=== PATIENT | female | born 1990 | race Caucasian/White ===

== ENCOUNTER 2016-09-27 07:49 | Inpatient (IN) | payer BC, OTHER ==
[~2016-09-27] VITALS: Ht 170.2 cm; Wt 49.9 kg
--- NOTE | 2016-09-27 13:58 | NUR ---
INTAKE ASSESSMENT Patient aox4 and stable. patient needed wheelchair for transportation due to being intoxicated at the moment. Vital signs stable. Patient reports allergies to vancomycin and shellfish. Patient reports seizure history last year. Explained unit protocols and policies, patient verbalized understanding. Will admit patient upon arrival to 3rd floor.
--- NOTE | 2016-09-27 14:00 | NUR ---
ADMISSION NOTE VITALS BP: 112/65 HR: 60 TEMP: 98.6 RR: 16 O2: 99% PAIN 0/10 WEIGHT 110 LBS HEIGHT 5'7 ALLERGIES: VANCOMYCIN, SHELLFISH Patient is a 25 year old female admitted to [facility] on 09/27/16 at 1318. Patient is under the care of Dr. Sky for meth, heroin, etoh dependence. Patient denies suicidal or homicidal ideations at this time. Patient denies being hospitalized in the last 30 days, but reports staying at a treatment center within this time. MRSA swab completed and sent to lab. Patient denies chest pain or SOB. Patient reports taking Gabapentin, Trazodone, and Inderal at home on a daily basis as rx medications. Upon assessment, patient has multiple bruises on bilateral arms from IV drug usage. CIWA 0 COWS 0 upon admission due to patient being mildly intoxicated and reports using drugs right before admission. Patient was able to answer questions necessary for admission process. Patient is full code and regular diet. Patient reports seizure history 1 month ago x1. breathing is even and unlabored. Patient reports Dr. Whelan is her PCP in [place]. Patient reports history of multiple treatment centers. Patient reports currently living with her friend. Hx of anxiety, depression, OCD, insomnia, and Hep C. Patient smokes approx. [address] Sky has been notified and assessed patient and placed her under observation. All needs have been met. Patient has been oriented to staff, room, and the unit. All safety measures in place per hospital policy. Bed in lowest position, locked, side rails up and padded x2, call tovar within reach. Sitter at bedside currently due to patient being intoxicated and been placed on 1:1 for observation and safety reasons. Will continue to monitor. substance abuse: METH 1/2-1 gram daily for 4 years, last used 09/27/16 1 gram HEROIN 1/2-1 gram daily for 7 years, last used 09/27/16 1 gram ETOH 75 oz beer daily for 8 years, last drank 09/27/16 75 ounces Addendum: 09/27/16 at 1907 by OLIVIER GREENE RN Patient admitted with multiple bruises to bilateral arms. Redness and edema to left hand. patient states all bruises and red burciaga are from using iv drugs
[2016-09-27] MEDS ORDERED: PROP10TA29 (14:18)
[2016-09-27] MEDS ORDERED: TRAZ-144 PO (14:19)
[2016-09-27] MEDS ORDERED: GABA-532 PO (14:19)
--- NOTE | 2016-09-27 14:19 | NUR ---
MRSA SWAB COLLECTED AND SENT TO LAB PATIENT REPORTS BEING IN [place] [facility]ENTER WITHIN THE LAST 30 DAYS WITH RECENT HX OF MRSA
--- NOTE | 2016-09-27 14:20 | NUR ---
1:1 sitter at bedside. patient unable to provide urine specimen and is mildly intoxicated
[2016-09-27] MEDS ORDERED: DICYCLOMINE HCL 20 MG TABLET PO PRN (14:30)
[2016-09-27] MEDS ORDERED: MAGNESIUM HYDROXIDE 30 ML LIQUID UDC PO PRN (14:30)
[2016-09-27] MEDS ORDERED: diphenhydrAMINE 50 MG CAPSULE PO PRN (14:30)
[2016-09-27] MEDS ORDERED: LORAZEPAM 1 MG TABLET PO PRN ×2 (14:30)
[2016-09-27] MEDS ORDERED: LORAZEPAM 2 MG/1 ML VIAL IM PRN (14:30)
[2016-09-27] MEDS ORDERED: MIRALAX 17 GM POWD.PACK PO PRN (14:30)
[2016-09-27] MEDS ORDERED: MAG HYDROX/AL HYDROX/SIMETH 30 ML LIQUID UDC PO PRN (14:30)
[2016-09-27] MEDS ORDERED: ONDANSETRON ODT 4 MG TAB.RAPDIS SL PRN (14:30)
[2016-09-27] MEDS ORDERED: LOPERAMIDE HCL 2 MG CAPSULE PO PRN ×2 (14:30)
[2016-09-27] MEDS ORDERED: PROPRANOLOL HCL 20 MG TABLET PO PRN (14:30)
[2016-09-27] MEDS ORDERED: ONDANSETRON 4 MG/2 ML VIAL IM PRN (14:30)
[2016-09-27] MEDS ORDERED: ACETAMINOPHEN 325 MG TABLET PO PRN (14:30)
[2016-09-27] MEDS ORDERED: BUPRENORPHINE HCL 2 MG TAB.SUBL SL PRN (14:30)
[2016-09-27 16:00] VITALS: BP 100/70
[2016-09-27 16:56] LABS: *URINE HCG, QUAL NEGATIVE (NEGATIVE)
[2016-09-27] MEDS ORDERED: THIAMINE HCL 200 MG/2 ML VIAL IM ONE (17:00)
[2016-09-27 17:13] LABS: *AMPHETAMINE, URINE POSITIVE (NEGATIVE); *BARBITURATE, URINE POSITIVE (NEGATIVE); *CANNABINOID, URINE NEGATIVE (NEGATIVE); *COCCAINE, URINE NEGATIVE (NEGATIVE); *OPIATE, URINE POSITIVE (NEGATIVE); *PHENCYCLIDINE SCREEN,URINE NEGATIVE (NEGATIVE)
[2016-09-27 18:36] LABS: BASOPHILS % (AUTO) 0.5 % (0.0-2.0); EOSINOPHILS # (AUTO) 0.3 K/uL (0.0-0.7); EOSINOPHILS % (AUTO) 3.4 % (0.0-7.0); HEMATOCRIT 40.1 % (37-47); HEMOGLOBIN 13.3 G/DL (12.0-16.0); LYMPHOCYTES # (AUTO) 2.1 K/UL (0.8-4.8); LYMPHOCYTES % (AUTO) 26.1 % (20.5-51.5); MEAN CORPUSCULAR HEMOGLOBIN 29.6 UUG (27.0-31.0); MEAN CORPUSCULAR HGB CONC 33 g/dL (32.0-37.0); MEAN CORPUSCULAR VOLUME 89.6 FL (81.0-99.0); MONOCYTES # (AUTO) 0.5 K/UL (0.1-1.30); MONOCYTES % (AUTO) 5.6 % (0.0-11.0); NEUTROPHILS # (AUTO) 5.1 K/UL (1.8-8.9); NEUTROPHILS % (AUTO) 64.4 % (38.5-71.5); PLATELET COUNT (AUTO) 198 K/UL (150-450); RED BLOOD CELL COUNT(AUTO) 4.48 MIL/UL (4.2-5.4)
--- NOTE | 2016-09-27 18:38 | NUR ---
END OF SHIFT NOTE Admitted patient this afternoon for etoh, heroin, meth dependence. Patient has not been started on a taper yet. She has been sleeping since admission with vital signs stable. Last COWS 2 CIWA 2. Patient taken off 1:1 as her gait is now steady and she is less intoxicated. No distress noted. All needs have been met. Safety measures in place. Will endorse to night nurse.
[2016-09-27 18:51] LABS: ALANINE AMINOTRANSFERASE 21 U/L (14-59); ALKALINE PHOSPHATASE 69 U/L (50-136); AMYLASE 22 U/L (25-115); ASPARTATE AMINOTRANSFERASE 26 U/L (15-37); BILIRUBIN,TOTAL 0.4 mg/dL (0.2-1.0); CARBON DIOXIDE 32 mmol/L (21-32); CHLORIDE 100 mmol/L (98-107); CREATININE 0.6 mg/dL (0.6-1.3); ETHANOL < 3 MG/DL (0-0); GLUCOSE 89 mg/dL (74-106); LIPASE 66 U/L (73-393); MAGNESIUM 1.9 mg/dL (1.8-2.4); POTASSIUM 3.4 mmol/L (3.5-5.1); TOTAL PROTEIN, SERUM 7.3 g/dL (6.4-8.2); UREA NITROGEN, BLOOD 6 mg/dL (7-18)
--- NOTE | 2016-09-27 19:50 | NUR ---
START OF SHIFT Received report from day shift nurse. Pt is lying in bed resting. She is a 25 yo female admitted to [facility] today for Heroin, ETOH, and Methamphetamine abuse. She is A&O x4 and ambulatory. Allergies to vancomycin and shellfish, full code status, and on a regular diet. She has a PMH of anxiety, depression, OCD, and insomnia. On admission she reported drinking beer 75 oz per day, heroin 0.5-1 gram per day and methamphetamine 0.5-1 gram per day. PRN's available for the management of withdrawal symptoms. Pt has bruises on bilateral arms and left hand redness and swelling due to IV drug use. PO abx ordered. She presents with body aches, hot and cold flashes, and left hand pain. Fall and seizure precautions in place. Bed is down with call light in reach.
[2016-09-27 20:00] VITALS: BP 112/69
[2016-09-27] MEDS ORDERED: TRAZODONE 50 MG TABLET PO PRN (21:00)
[2016-09-27] MEDS ORDERED: POTASSIUM CHLORIDE 20 MEQ TAB.PRT.SR PO ONE (21:00)
[2016-09-27] MEDS: SULFAMETH/TRIMETH 800/160 MG TABLET PO SCH (21:41)
[2016-09-27] MEDS: LACTOBACILLUS RHAMNOSUS GG 1 EACH CAPSULE PO SCH (21:42)
--- NOTE | 2016-09-27 21:42 | NUR ---
Potassium administered
[2016-09-27] MEDS: GABAPENTIN 300 MG CAPSULE PO SCH (21:45)
[2016-09-27] MEDS: IBUPROFEN 600 MG TABLET PO PRN (21:45)
--- NOTE | 2016-09-27 21:45 | NUR ---
PRN Motrin and Ativan Pt c/o mild headache, left hand pain r/t IV drug use, and feeling anxious. CIWA score 6. PRN Motrin and Ativan administered.
--- NOTE | 2016-09-27 22:45 | NUR ---
PRN Tylenol and Anbesol reassessment PRN Tylenol and Anbesol effective. Pt reports that tooth pain is relieved. Addendum: 09/28/16 at 0112 by STAN JUARES RN Disregard note. Incorrect patient.
--- NOTE | 2016-09-27 22:45 | NUR ---
PRN Motrin and Ativan reassessment PRN Motrin and Ativan effective. Pt reports that left hand pain is reduced, headache is relieved, and she feels more relaxed. CIWA 3.
[2016-09-28] VITALS: BP 106/60
--- NOTE | 2016-09-28 | NUR ---
0000 COWS and CIWA deferred COWS and CIWA ordered Q4HWA. Pt is lying in bed resting with eyes closed. Vital signs obtained. Safety measures in place.
[2016-09-28 04:00] VITALS: BP 111/72
--- NOTE | 2016-09-28 04:00 | NUR ---
0400 COWS and CIWA deferred COWS and CIWA ordered Q4HWA. Pt is lying in bed resting with eyes closed. Vital signs obtained. Safety measures in place.
--- NOTE | 2016-09-28 07:23 | NUR ---
END OF SHIFT Report provided to day shift nurse. Pt is lying in bed resting. She is a 25 yo female admitted to [facility] today for Heroin, ETOH, and Methamphetamine abuse. She is A&O x4 and ambulatory. Allergies to vancomycin and shellfish, full code status, and on a regular diet. She has a PMH of anxiety, depression, OCD, and insomnia. Upon admission she admitted to drinking beer 75 oz per day, heroin 0.5-1 gram per day and methamphetamine 0.5-1 gram per day. PRN's ordered for the management of withdrawal symptoms. Pt has bruises on bilateral arms and painful swelling of left hand r/t IV drug use. PO Bactrim ordered. PRN Ativan and Motrin administered. Last COWS 5 and CIWA 3. She drank 750mL and slept for 9 hours. Fall and seizure precautions in place. Bed is down with call light in reach.
--- NOTE | 2016-09-28 07:55 | NUR ---
START OF SHIFT: RECEIVED PT ASLEEP. RESPIRATIONS EVEN AND UNLABORED. BED LOCKED AND LOW. CALL LANDERS IN REACH. WILL CONTINUE TO MONITOR.
[2016-09-28 08:00] VITALS: BP 100/60
[2016-09-28] MEDS: GABAPENTIN 300 MG CAPSULE PO SCH ×3 (09:00→21:24)
[2016-09-28] MEDS: THIAMINE HCL 100 MG TABLET PO SCH (09:00)
[2016-09-28] MEDS: FOLIC ACID 1 MG TABLET PO SCH (09:00)
[2016-09-28] MEDS: MULTIVITAMINS,THERAPEUTIC TABLET PO SCH (09:00)
[2016-09-28] MEDS ORDERED: TUBERCULIN,PURIF.PROT.DERIV. 5 TU/0.1 ML TEST ID ONE ×2 (09:00→13:00)
--- NOTE | 2016-09-28 09:55 | NUR ---
COWS AND CIWA DEFERRED. SHE AGREED TO TAKE BACTRIM BUT SHE ASKED TO PLEASE HOLD THE REST OF HER MEDS UNTIL LATER.
[2016-09-28] MEDS: SULFAMETH/TRIMETH 800/160 MG TABLET PO SCH ×2 (10:16→21:24)
[2016-09-28] MEDS: LACTOBACILLUS RHAMNOSUS GG 1 EACH CAPSULE PO SCH ×2 (10:16→21:24)
[2016-09-28] MEDS ORDERED: LORAZEPAM 1 MG TABLET PO PRN (10:45)
[2016-09-28] MEDS ORDERED: BUPRENORPHINE HCL 2 MG TAB.SUBL SL PRN (10:45)
[2016-09-28 12:00] VITALS: BP 105/60
--- NOTE | 2016-09-28 13:00 | NUR ---
ISAAK 16 GAVE ATIVAN 2 MG PO PRN . PPD PLANTED TO LFA. WILL MONITOR EFFECTIVENESS OF PRN MED.
--- NOTE | 2016-09-28 13:31 | NUR ---
Therapist prompted client to attend daily group sessions, and therapist informed client of the group schedule. Client stated that she would make an effort to attend if she was feeling well enough too.
--- NOTE | 2016-09-28 14:00 | NUR ---
PT STATES SHE FEELS MUCH BETTER. IRAIS DAY EFFECTIVE. Addendum: 09/28/16 at 1457 by CLAUDINE LAM RN ISAAK Holland
[2016-09-28 16:00] VITALS: BP 104/64
[2016-09-28] MEDS: METHOCARBAMOL 750 MG TABLET PO PRN (18:20)
[2016-09-28] MEDS: LORAZEPAM 1 MG TABLET PO PRN ×2 (18:20→21:32)
[2016-09-28] MEDS: IBUPROFEN 600 MG TABLET PO PRN (18:20)
--- NOTE | 2016-09-28 18:25 | NUR ---
PT C/O ANXIETY,RESTLESSNESS MUSCLE ACHES AND IRRITABILITY. CIWA 8 SHE IS ASKING FOR ATIVAN AND SOMETHING FOR HER L HAND PAIN. MOTRIN,ROBAXIN AND ATIVAN GIVEN. WILL MONITOR EFFECTIVENESS.
--- NOTE | 2016-09-28 18:38 | NUR ---
END OF SHIFT: PT STAYED IN BED SLEEPING ON AND OFF. SHE WAS GIVEN ATIVAN PRN X 2. LAST CIWA 8. SHE PRESENTS WITH IRRITABLE MOOD AND CONGRUENT AFFECT. SHE STATES SHE DID NOT WANT ANY SUBUTEX TODAY AND DOESN'T LIKE IT. MOTRIN GIVEN FOR L HAND PAIN AND ROBAXIN GIVEN FOR MUSCLE ACHES. PPD PLANTED TO RFA. SHE WAS COMPLIANT WITH INCREASED FLUIDS. ABT THERAPY WITH BACTRIM FOR L HAND SWELLING AND REDNESS. WILL PASS SHIT REPORT TO ONCOMING NIGHT NURSE.
--- NOTE | 2016-09-28 19:05 | NUR ---
Start of Shift Patient Received. Patient is noted in her bed sleeping. Breathing even and non labored. No signs of pain or discomfort noted. Patient is a 25 year old female, admitted on 09/27/16 for ETOH and Opiate Dependence under the care of Dr. Sky. Patient verbalizes allergies to Shellfish and Vancomycin, wishes to be full code, following a regular diet, placed on fall and seizure precautions. Skin noted with bruises to bilateral upper extremities and left hand redness and swelling. Patient continues on Bactrim DS Q12H. Per endorsement, patient has been refusing PRN Subutex due to patient reporting it makes her stay awake. Patient has been noted to be withdrawn to room and sleeping throughout the shift. Patient was give PRN Motrin, Robaxin, and Ativan for CIWA of 8. All needs attended to promptly. Will continue plan of care as ordered.
[2016-09-28 20:15] VITALS: BP 102/63
--- NOTE | 2016-09-28 21:32 | NUR ---
PRN Medication Administration Patient verbalizing increased anxiety, noted to be tremulous, verbalizing increased agitation, and restlessness. CIWA noted to be 7. PRN Ativan 1mg administered as per order. Will continue to monitor.
--- NOTE | 2016-09-28 22:30 | NUR ---
PRN Medication Reassessment Patient noted in bed watching tv. Patient is able to verbalize "I feel like the medication helped take the edge off." PRN Ativan noted to be effective. CIWA noted to be 3. All needs attended to promptly. Will continue to monitor.
[2016-09-29 00:30] VITALS: BP 98/62
[2016-09-29 04:06] VITALS: BP 99/58
--- NOTE | 2016-09-29 07:13 | NUR ---
End of Shift Patient is in bed sleeping. Breathing even and non labored. No signs of pain or discomfort noted. Patient is a 25 year old female, admitted on 09/27/16 for ETOH and Opiate Dependence under the care of Dr. Sky. Patient verbalizes allergies to Shellfish and Vancomycin, wishes to be full code, following a regular diet, placed on fall and seizure precautions. Skin noted with bruises to bilateral upper extremities and left hand redness and swelling. Patient continues on Bactrim DS Q12H. Patient was given PRN Ativan 1mg for a CIWA of 7 with medication noted to be effective with a CIWA of 3. All needs attended to promptly. Will continue plan of care as ordered.
[2016-09-29 08:00] VITALS: BP 104/60
--- NOTE | 2016-09-29 08:10 | NUR ---
START OF SHIFT: RECEIVED PT A/O X 4. SHE PRESENTS WITH BLUNTED AFFECT AND DEPRESSED MOOD. SHE DENIES S/I AND H/I. SHE STATES SHE SLEPT WELL. ENCOURAGED HER TO EAT FREQUENT SMALL MEALS TO PROMOTE GOOD NUTRITION. ENCOURAGED INCREASED FLUIDS. GAVE PT TOWELS AND WASH CLOTH SO SHE CAN SHOWER THIS AM. COWS 2 CIWA 2. PRNS AVAILABLE. SHE REPORTS SOME DEPRESSION AND MILD BODY ACHES. SHE VERBALIZED THE AMOUNT OF TIMES SHE OVERDOSED AND HOW THIS ADDICTION IS HURTING HER. ENCOURAGED GROUP ATTENDANCE TO PREVENT RELAPSE AND IMPROVE COPING SKILLS.OFFERED SUPPORT. WILL CONTINUE TO MONITOR.
[2016-09-29] MEDS: FOLIC ACID 1 MG TABLET PO SCH (08:48)
[2016-09-29] MEDS: SULFAMETH/TRIMETH 800/160 MG TABLET PO SCH ×2 (08:48→20:21)
[2016-09-29] MEDS: THIAMINE HCL 100 MG TABLET PO SCH (08:48)
[2016-09-29] MEDS: GABAPENTIN 300 MG CAPSULE PO SCH ×3 (08:48→20:20)
[2016-09-29] MEDS: MULTIVITAMINS,THERAPEUTIC TABLET PO SCH (08:49)
[2016-09-29] MEDS: LACTOBACILLUS RHAMNOSUS GG 1 EACH CAPSULE PO SCH ×2 (08:49→20:20)
[2016-09-29 12:00] VITALS: BP 95/54
[2016-09-29] MEDS: IBUPROFEN 600 MG TABLET PO PRN (13:39)
[2016-09-29] MEDS: HYDROXYZINE PAMOATE 25 MG CAPSULE PO PRN ×2 (13:39→20:20)
--- NOTE | 2016-09-29 13:45 | NUR ---
PRN MOTRIN GIVEN FOR REPORTED TEETH PAIN 6/10 AND VISTARIL PRN GIVEN FOR ANXIETY. WILL MONITOR EFFECTIVENESS.
[2016-09-29] MEDS ORDERED: IBUP-1955 PO (14:09)
[2016-09-29] MEDS ORDERED: GABA-534 PO (14:09)
[2016-09-29] MEDS ORDERED: DICY20TA28 PO (14:09)
[2016-09-29] MEDS ORDERED: HYDR-3895 PO (14:09)
[2016-09-29] MEDS ORDERED: METH-406 PO (14:09)
[2016-09-29] MEDS ORDERED: LACT1CAP57 PO (14:09)
[2016-09-29] MEDS ORDERED: TRAZ-144 PO (14:09)
[2016-09-29] MEDS ORDERED: SULF1TAB3 PO (14:09)
--- NOTE | 2016-09-29 14:45 | NUR ---
PT STATES VISTARIL AND MOTRIN WERE EFFECTIVE. PAIN 05/03.DISCHARGE PLANNING IN PROGRESS FOR TOMORROW.
[2016-09-29 16:00] VITALS: BP 90/60
--- NOTE | 2016-09-29 18:52 | NUR ---
END OF SHIFT: PT STAYED IN ROOM MOST OF SHIFT AND HAD LITTLE INTERACTION WITH PEERS AND NO GROUP ATTENDANCE. SHE WAS GIVEN PRN MOTRIN FOR TEETH PAIN AND VISTARIL FOR ANXIETY AND WAS EFFECTIVE.LAST CIWA 3.COWS 4. SHE PRESENTS WITH IRRITABLE MOOD AND CONGRUENT AFFECT. SHE WAS COMPLIANT WITH INCREASED FLUIDS. ABT THERAPY WITH BACTRIM FOR L HAND SWELLING AND REDNESS. DISCHARGE PLANNING IN PROGRESS FOR 09/30. UDS NOT RECEIVED AND PT BECAME AGITATED WHEN TOLD SHE WAS GOING ON ROOM RESTRICTION. PT EXPRESSED SHE IS HAVING CRAVINGS. OFFERED SUPPORT. [facility]
--- NOTE | 2016-09-29 19:15 | NUR ---
START OF SHIFT: RECEIVED PT A/O X 4. SHE PRESENTS WITH BLUNTED AFFECT AND DEPRESSED MOOD. SHE DENIES S/I AND H/I. SHE STATES SHE SLEPT WELL. ENCOURAGED HER TO EAT FREQUENT SMALL MEALS TO PROMOTE GOOD NUTRITION. ENCOURAGED INCREASED FLUIDS. PRNS AVAILABLE. SHE REPORTS SOME DEPRESSION AND MILD BODY ACHES. SHE VERBALIZED HOW THIS ADDICTION IS HURTING HER. ENCOURAGED GROUP ATTENDANCE TO PREVENT RELAPSE AND IMPROVE COPING SKILLS. Pt. will be D/C tomorrow. Safety measures in place : bed on lowest position with side rails x2 up for safety, call light within reach. Will continue to monitor closely and offer help.
[2016-09-29 20:00] VITALS: BP 117/70
[2016-09-29 20:09] LABS: *AMPHETAMINE, URINE POSITIVE (NEGATIVE); *BARBITURATE, URINE POSITIVE (NEGATIVE); *CANNABINOID, URINE NEGATIVE (NEGATIVE); *COCCAINE, URINE NEGATIVE (NEGATIVE); *OPIATE, URINE POSITIVE (NEGATIVE); *PHENCYCLIDINE SCREEN,URINE NEGATIVE (NEGATIVE)
[2016-09-29] MEDS: METHOCARBAMOL 750 MG TABLET PO PRN (20:21)
--- NOTE | 2016-09-29 21:00 | NUR ---
PRN TRAZODONE, ROBAXIN, VISTARIL, BENADRYL Pt. complains of sleeplessness, muscle spasm, increased level of anxiety. PRN TRAZODONE, ROBAXIN, VISTARIL, BENADRYL given as ordered. Safety measures in place : bed on lowest position with side rails x2 up for safety, call light within reach. Will continue to monitor closely and offer help.
[2016-09-29] MEDS ORDERED: diphenhydrAMINE 50 MG CAPSULE PO ONE (22:00)
--- NOTE | 2016-09-29 22:00 | NUR ---
REASSESSMENT TRAZODONE, ROBAXIN, VISTARIL, BENADRYL Pt. is sleeping, RR=16, unlabored and even. . Safety measures in place : bed on lowest position with side rails x2 up for safety, call light within reach. Will continue to monitor closely and offer help.
[2016-09-29] MEDS ORDERED: diphenhydrAMINE 50 MG CAPSULE ONE (22:16)
--- NOTE | 2016-09-30 06:34 | NUR ---
END OF SHIFT: RECEIVED PT A/O X 4. SHE PRESENTS WITH BLUNTED AFFECT AND DEPRESSED MOOD. SHE DENIES S/I AND H/I. SHE STATES SHE SLEPT WELL. ENCOURAGED HER TO EAT FREQUENT SMALL MEALS TO PROMOTE GOOD NUTRITION. ENCOURAGED INCREASED FLUIDS. PRNS AVAILABLE. SHE REPORTS SOME DEPRESSION AND MILD BODY ACHES. SHE VERBALIZED HOW THIS ADDICTION IS HURTING HER. ENCOURAGED GROUP ATTENDANCE TO PREVENT RELAPSE AND IMPROVE COPING SKILLS. Pt. will be D/C in A.M after meeting with . Pt remains compliant with the treatment plan. PRN TRAZODONE, ROBAXIN, VISTARIL, BENADRYL given during my shift. V/S remain WNL. RR=16, even and unlabored, lungs clear upon auscultation, abdomen soft and non- distended. Pt denies nausea, vomiting and diarrhea. LAST CIWA= 2 ,COWS= 2 at 0400 , CLBSSP=6321 ml, voided x 1, slept 8 hours. Safety measures in place : bed on lowest position with side rails x2 up for safety, call light within reach. Will continue to monitor closely and offer help.
--- NOTE | 2016-09-30 07:53 | NUR ---
START OF SHIFT NOTE Received patient in bed Aox4. patient states she feels "fine." She is scheduled for discharge this shift. PRN Trazodone, Benadryl, Robaxin, and Vistaril given per night nurse. She slept 8 hours. Night nurse reports last COWS 2 CIWA 2. Vital signs stable this morning. Will provide safe and supportive environment. Will continue to monitor.
[2016-09-30 08:00] VITALS: BP 91/63
[2016-09-30] MEDS: SULFAMETH/TRIMETH 800/160 MG TABLET PO SCH (08:14)
[2016-09-30] MEDS: GABAPENTIN 300 MG CAPSULE PO SCH (08:14)
[2016-09-30] MEDS: THIAMINE HCL 100 MG TABLET PO SCH (08:15)
[2016-09-30] MEDS: MULTIVITAMINS,THERAPEUTIC TABLET PO SCH (08:15)
[2016-09-30] MEDS: LACTOBACILLUS RHAMNOSUS GG 1 EACH CAPSULE PO SCH (08:15)
[2016-09-30] MEDS: FOLIC ACID 1 MG TABLET PO SCH (08:15)
[2016-09-30 12:08] LABS: HEPATITIS B SURFACE AG Negative (Negative)
--- NOTE | 2016-09-30 12:17 | NUR ---
DISCHARGE NOTE PATIENT IS IN STABLE CONDITION WITH VITAL SIGNS WNL. PATIENT IS AOX4. SKIN INTACT WITH BILAT BRUISES THAT WERE PRESENT UPON ADISSION. PATIENT DENIES S/I OR H/I. ALL DISCHARGE PAPERWORK COMPLETED, DATED AND SIGNED. PATIENT EDUCATED ON DISCHARGE INSTRUCTIONS AND WHEN TO CALL MD AND PATIENT VERBALIZED UNDERSTANDING. PATIENTS LAST COWS 2 CIWA 2. PATIENT WAS DISCHARGED FROM [facility] ON 09/30/16 AT 1200. PATIENT LEFT BUILDING WITH ALL BELONGINGS AND RX. PATIENT TRANSPORTED TO [facility] BY WOOD MILLING MACHINE OPERATOR AND PICKED UP BY [facility]. MD HAS BEEN NOTIFIED OF PATIENTS DC.
== END 2016-09-30 12:00 | disposition other institution (70) | DRG 895 ==
LOC: SRC 12:24
PROVIDERS: ADMIT Internal Medicine; ATTEND Internal Medicine
PROC: HZ2ZZZZ Detoxification Services for Substance Abuse Treatment (ICD-10-PCS; principal; 2016-09-27)
PROC: HZ31ZZZ Individual Counseling for Substance Abuse Treatment, Behavioral (ICD-10-PCS; 2016-09-28)
DX: F11.23 Opioid dependence with withdrawal (principal); L03.114 Cellulitis of left upper limb; F10.230 Alcohol dependence with withdrawal, uncomplicated; Y90.9 Presence of alcohol in blood, level not specified; B19.20 Unspecified viral hepatitis C without hepatic coma; Z81.8 Family history of other mental and behavioral disorders; Z81.1 Family history of alcohol abuse and dependence; Z82.49 Family history of ischemic heart disease and other diseases of the circulatory system; Z86.14 Personal history of Methicillin resistant Staphylococcus aureus infection; F17.210 Nicotine dependence, cigarettes, uncomplicated; E87.6 Hypokalemia; F15.23 Other stimulant dependence with withdrawal; G47.00 Insomnia, unspecified; F41.9 Anxiety disorder, unspecified; Z59.0 Homelessness; F32.9 Major depressive disorder, single episode, unspecified; S61.432S Puncture wound without foreign body of left hand, sequela; X78.8XXS Intentional self-harm by other sharp object, sequela
CPT/HCPCS: 36415; 70030-TC; 80307; 80324; 80345; 80361; 83690; 83735; 84443; 84703; 85025; 86580; 86592; 86705; 86803; 87340; 87806; G0480; J3411; Q0163

== ENCOUNTER 2016-11-01 21:57 | Inpatient (IN) | payer BC, OTHER ==
[~2016-11-01] VITALS: Ht 170.2 cm; Wt 45.4 kg
[~2016-11-01 21:57] MED LIST: DICY20TA28 PO; GABA-534 PO; HYDR-3895 PO; IBUP-1955 PO; LACT1CAP57 PO; METH-406 PO; PROP10TA29; SULF1TAB3 PO; TRAZ-144 PO
[2016-11-01] MEDS ORDERED: LOPERAMIDE HCL 2 MG CAPSULE PO PRN ×2 (23:45)
[2016-11-01] MEDS ORDERED: CLONIDINE HCL 0.1 MG TABLET PO PRN (23:45)
[2016-11-01] MEDS ORDERED: LORAZEPAM 2 MG/1 ML VIAL IM PRN (23:45)
[2016-11-01] MEDS ORDERED: ONDANSETRON 4 MG/2 ML VIAL IM PRN (23:45)
[2016-11-01] MEDS ORDERED: MAG HYDROX/AL HYDROX/SIMETH 30 ML LIQUID UDC PO PRN (23:45)
[2016-11-01] MEDS ORDERED: MIRALAX 17 GM POWD.PACK PO PRN (23:45)
[2016-11-01] MEDS ORDERED: METHOCARBAMOL 750 MG TABLET PO PRN (23:45)
[2016-11-01] MEDS ORDERED: DICYCLOMINE HCL 20 MG TABLET PO PRN (23:45)
[2016-11-01] MEDS ORDERED: diphenhydrAMINE 50 MG CAPSULE PO PRN (23:45)
[2016-11-01] MEDS ORDERED: LORAZEPAM 1 MG TABLET PO PRN (23:45)
[2016-11-01] MEDS ORDERED: BUPRENORPHINE HCL 2 MG TAB.SUBL SL PRN (23:45)
[2016-11-01] MEDS ORDERED: ACETAMINOPHEN 325 MG TABLET PO PRN (23:45)
[2016-11-02] MEDS ORDERED: PROPRANOLOL HCL 20 MG TABLET PO PRN
--- NOTE | 2016-11-02 00:15 | NUR ---
INTAKE ASSESSMENT BP:110/56, HR:86, RR:16, Spo2: 97%, T:98 Pt reports headache 08/31. Pt is in stable condition and able to be admitted on the unit. Unit protocols regarding medications and vital signs every four hours were explained. Pt verbalized understanding. Will continue admission upon arrival on the unit.
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
[2016-11-02] MEDS ORDERED: TRAZODONE 50 MG TABLET PO ONE (01:45)
[2016-11-02] MEDS ORDERED: TRAZODONE 50 MG TABLET PO SCH (01:45)
[2016-11-02 01:48] LABS: *URINE HCG, QUAL NEGATIVE (NEGATIVE)
[2016-11-02] MEDS: LORAZEPAM 1 MG TABLET PO PRN ×2 (01:48→09:19)
[2016-11-02] MEDS: IBUPROFEN 600 MG TABLET PO PRN (01:48)
[2016-11-02] MEDS: ONDANSETRON ODT 4 MG TAB.RAPDIS SL PRN (01:48)
--- NOTE | 2016-11-02 01:48 | NUR ---
ONE TIME TRAZODONE, PRN ATIVAN, MOTRIN, ZOFRAN Pt complains of pins/needles, anxiety, nausea, restlessness, headache and inability to sleep. One time Trazodone, PRN Ativan, Motrin and Zofran administered as ordered. Breathing even and unlabored, safety measures in place. Will monitor effectiveness.
[2016-11-02] MEDS ORDERED: LORAZEPAM 1 MG TABLET ONE (01:50)
[2016-11-02] MEDS ORDERED: IBUPROFEN 600 MG TABLET ONE (01:51)
[2016-11-02] MEDS ORDERED: ONDANSETRON ODT 4 MG TAB.RAPDIS ONE (01:51)
[2016-11-02 01:53] LABS: *AMPHETAMINE, URINE POSITIVE (NEGATIVE); *BARBITURATE, URINE POSITIVE (NEGATIVE); *CANNABINOID, URINE NEGATIVE (NEGATIVE); *COCCAINE, URINE NEGATIVE (NEGATIVE); *OPIATE, URINE POSITIVE (NEGATIVE); *PHENCYCLIDINE SCREEN,URINE NEGATIVE (NEGATIVE)
--- NOTE | 2016-11-02 02:48 | NUR ---
PRN REASSESSMENT PRN medications effective. Pt is lying in bed with eyes closed noted to be asleep. No facial grimacing noted. Respirations 16, breathing is even and unlabored, safety measures in place. Will monitor
[2016-11-02 04:00] VITALS: BP 91/54
--- NOTE | 2016-11-02 04:00 | NUR ---
COWS/CIWA DEFERRED COWS and CIWA deferred d/t pt lying in bed with eyes closed noted to be asleep. Respirations 16, breathing is even and unlabored. Safety measures in place. Will monitor.
[2016-11-02 06:43] LABS: BASOPHILS % (AUTO) 0.3 % (0.0-2.0); EOSINOPHILS # (AUTO) 0.5 K/uL (0.0-0.7); EOSINOPHILS % (AUTO) 5.4 % (0.0-7.0); HEMATOCRIT 35.9 % (37-47); HEMOGLOBIN 12.1 G/DL (12.0-16.0); LYMPHOCYTES # (AUTO) 2.5 K/UL (0.8-4.8); LYMPHOCYTES % (AUTO) 29.7 % (20.5-51.5); MEAN CORPUSCULAR HEMOGLOBIN 29.8 UUG (27.0-31.0); MEAN CORPUSCULAR HGB CONC 34 g/dL (32.0-37.0); MEAN CORPUSCULAR VOLUME 88.5 FL (81.0-99.0); MONOCYTES # (AUTO) 0.9 K/UL (0.1-1.30); MONOCYTES % (AUTO) 10.5 % (0.0-11.0); NEUTROPHILS # (AUTO) 4.5 K/UL (1.8-8.9); NEUTROPHILS % (AUTO) 54.1 % (38.5-71.5); PLATELET COUNT (AUTO) 186 K/UL (150-450); RED BLOOD CELL COUNT(AUTO) 4.05 MIL/UL (4.2-5.4); WHITE BLOOD COUNT (AUTO) 8.4 K/UL (4.0-11.2)
[2016-11-02 06:49] LABS: ALANINE AMINOTRANSFERASE 17 U/L (14-59); ALKALINE PHOSPHATASE 60 U/L (50-136); AMYLASE 32 U/L (25-115); ASPARTATE AMINOTRANSFERASE 16 U/L (15-37); BILIRUBIN,TOTAL 0.4 mg/dL (0.2-1.0); CARBON DIOXIDE 30 mmol/L (21-32); CHLORIDE 103 mmol/L (98-107); CREATININE 0.6 mg/dL (0.6-1.3); GLUCOSE 123 mg/dL (74-106); MAGNESIUM 1.8 mg/dL (1.8-2.4); POTASSIUM 2.9 mmol/L (3.5-5.1); TOTAL PROTEIN, SERUM 6.5 g/dL (6.4-8.2); UREA NITROGEN, BLOOD 11 mg/dL (7-18)
[2016-11-02 06:53] LABS: ETHANOL < 3 MG/DL (0-0)
--- NOTE | 2016-11-02 06:59 | NUR ---
END OF SHIFT Pt is a 26 year old female admitted on 11/02/16 for EOTH, heroin, and methamphetamine dependency. Pt is full code with allergy to shellfish and Vancomycin. She reports a PMHx of seizure in Dec 2015, Chlamydia (2013),depression , MRSA 2012 and OCD. She received PRN Ativan, Trazodone, Motrin, and Zofran. She slept a total of 2 hrs, Intake: 1445mL, Void: x1, BM:0, COWS:5, CIWA:7. Pt remains alert and oriented x4, breathing is even and unlabored, safety measures in place. Endorsed to oncoming shift.
--- NOTE | 2016-11-02 07:48 | NUR ---
START OF SHIFT NOTE Received patient this Am Aox4.Patient presents with flat affect and fatigued. She states she feels "Crappy." RR even and unlabored. Call light within reach.No taper ordered yet. PRN Trazodone, Ativan, motrin, Zofran given per night nurse. She slept 2 hours. Last CIWA 7 COWS 5 per night nurse. Encouraged patient to rest during shift. Encouraged patient to increase fluid intake to facilitate detox. Encouraged pt to notify RN if S/S of W/D worsen. Will monitor closely and offer help.
[2016-11-02 08:00] VITALS: BP 84/62
[2016-11-02] MEDS ORDERED: TUBERCULIN,PURIF.PROT.DERIV. 5 TU/0.1 ML TEST ID ONE (09:00)
[2016-11-02] MEDS: FOLIC ACID 1 MG TABLET PO SCH (09:19)
[2016-11-02] MEDS: MULTIVITAMINS,THERAPEUTIC TABLET PO SCH (09:19)
--- NOTE | 2016-11-02 09:23 | NUR ---
PRN MEDICATION 1 MG ATIVAN GIVEN FOR W/D SYMPTOMS. PT STATES ANXIETY & TREMORS. CIWA 9. WILL REASSESS
--- NOTE | 2016-11-02 09:25 | NUR ---
MRSA SWAB COMPLETED AND SENT TO LAB. PATIENT REPORTS BEING HOMELESS AND BEING IN A TREATMENT CENTER WITHIN THE LAST 30 DAYS.
[2016-11-02] MEDS: POTASSIUM CHLORIDE 20 MEQ TAB.PRT.SR PO ONE ×2 (09:49→09:52)
--- NOTE | 2016-11-02 10:20 | NUR ---
PRN REASSESSMENT PATIENT SLEEPING IN BED WITH RR EVEN AND UNLABORED. CALL LANDERS WITHIN REACH. BED IN LOWEST POSITION. CIWA DEFERRED D/T ORDER BEING WHILE AWAKE. WILL MONITOR CLOSELY.
[2016-11-02] MEDS ORDERED: TRAZODONE 50 MG TABLET PO PRN (11:45)
[2016-11-02 12:00] VITALS: BP 91/62
[2016-11-02] MEDS: LORAZEPAM 1 MG TABLET PO SCH ×3 (12:07→21:35)
[2016-11-02] MEDS ORDERED: THIAMINE HCL 200 MG/2 ML VIAL IM ONE (12:30)
[2016-11-02] MEDS ORDERED: POTASSIUM CHLORIDE 20 MEQ POWDER PACKET PO ONE ×2 (13:00→21:00)
[2016-11-02] MEDS ORDERED: POTASSIUM CHLORIDE 20 MEQ TAB.PRT.SR PO ONE (15:00)
[2016-11-02] MEDS ORDERED: GABAPENTIN 300 MG CAPSULE PO SCH (15:00)
[2016-11-02 16:00] VITALS: BP 87/56
--- NOTE | 2016-11-02 18:26 | NUR ---
END OF SHIFT NOTE Patient started on Ativan taper and tolerating well. PRN Ativan given at 0920 d/t s/s of w/d. patient had uneventful shift. Patient slept entire shift, but would arise for medication pass, assessments, and RN communication. She appeared fatigued and drowsy r/t w/d process.. RR even and unlabored. No distress noted. Vital signs stable.MRSA swab collected and sent to lab. Potassium levels low and was supplemented with PO Potassium during shift, Last COWS 8 CIWA 6. All needs met. All safety measures in place. Will endorse to night nurse.
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
[2016-11-02 20:00] VITALS: BP 102/55
[2016-11-02] MEDS ORDERED: BUPRENORPHINE HCL 2 MG TAB.SUBL SL PRN (20:00)
[2016-11-02] MEDS: GABAPENTIN 300 MG CAPSULE PO SCH (21:36)
[2016-11-02] MEDS ORDERED: GABAPENTIN 300 MG CAPSULE ONE (21:37)
[2016-11-03 04:00] VITALS: BP 103/58
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
[2016-11-03 07:09] LABS: CREATININE 0.7 mg/dL (0.6-1.3); MAGNESIUM 1.7 mg/dL (1.8-2.4)
--- NOTE | 2016-11-03 07:30 | NUR ---
START OF SHIFT Pt is a 26 yr old female, AA&Ox3. Pt was admitted on 11/01/16 for ETOH/Opiate Dependence and is on 4 day Subutex and 4 day Ativan taper as ordered. No PRN's were given during the night. Pt slept for 11 hrs. Last COWS score was 3, CIWA score was 4. Pt is currently c/o cold and hot chills, body ache 4/10, nausea and abdominal cramping. Zofran was offered but pt refused. Skin is intact, warm and dry to touch. No tremors seen or felt. Encouraged increase fluid intake. Safety precautions observed. Call light is within reach. Will continue to monitor.
[2016-11-03 08:00] VITALS: BP 103/56
[2016-11-03] MEDS: THIAMINE HCL 100 MG TABLET PO SCH (09:13)
[2016-11-03] MEDS: FOLIC ACID 1 MG TABLET PO SCH (09:14)
[2016-11-03] MEDS: GABAPENTIN 300 MG CAPSULE PO SCH ×3 (09:14→21:35)
[2016-11-03] MEDS: LORAZEPAM 1 MG TABLET PO SCH ×4 (09:14→21:34)
[2016-11-03] MEDS: MULTIVITAMINS,THERAPEUTIC TABLET PO SCH (09:14)
[2016-11-03] MEDS: BUPRENORPHINE HCL 2 MG TAB.SUBL SL SCH ×3 (09:14→21:35)
[2016-11-03 10:07] LABS: HEPATITIS B SURFACE AG Negative (Negative)
[2016-11-03] MEDS: FLUOXETINE HCL 20 MG CAPSULE PO SCH (10:39)
[2016-11-03] MEDS ORDERED: MAGNESIUM OXIDE 400 MG TABLET PO ONE (11:00)
[2016-11-03 12:30] VITALS: BP 103/66
[2016-11-03] MEDS: DICYCLOMINE HCL 20 MG TABLET PO SCH ×2 (14:57→21:34)
[2016-11-03] MEDS: BACLOFEN 10 MG TABLET PO SCH ×2 (14:57→21:35)
[2016-11-03 16:00] VITALS: BP 106/52
--- NOTE | 2016-11-03 19:07 | NUR ---
END OF SHIFT Pt is a 26 yr old female, A&Ox3. Pt was admitted on 11/01/16 for ETOH/Opiate Dependence and is on 4 day Subutex and 4 day Ativan taper as ordered. Pt has been cooperative with medication regimen. Pt refused to attend group sessions. No PRNs were given. Pt has been c/o anxiety and cold chills. Skin is intact, warm and dry to touch. No tremors seen or felt. Pt denies any n/v. Last COWS score was 5, CIWA score was 3. Encouraged increase fluid intake. Safety precautions observed. Call light is within reach.
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
[2016-11-03 21:00] VITALS: BP 113/70
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
--- NOTE | 2016-11-04 07:30 | NUR ---
START OF SHIFT Pt is a 26 yr old female, AA&Ox3. Pt was admitted on 11/01/16 for ETOH/Opiate Dependence and is on 4 day Subutex and 4 day Ativan taper as ordered. No PRN's were given during the night. Pt slept for 8 hrs. Last COWS score was 3, CIWA score was 3. Pt is currently in bed resting with respirations even and unlabored. Pt states of having anxiety and cold chills. Skin is warm and dry to touch. No tremors seen or felt. Encouraged increase fluid intake. Safety precautions observed. Call light is within reach. Will continue to monitor.
[2016-11-04 08:00] VITALS: BP 102/51
[2016-11-04] MEDS ORDERED: BUPRENORPHINE HCL 2 MG TAB.SUBL SL SCH (09:00)
[2016-11-04] MEDS: FLUOXETINE HCL 20 MG CAPSULE PO SCH (09:54)
[2016-11-04] MEDS: GABAPENTIN 300 MG CAPSULE PO SCH ×3 (09:54→21:33)
[2016-11-04] MEDS: DICYCLOMINE HCL 20 MG TABLET PO SCH ×3 (09:54→21:34)
[2016-11-04] MEDS: THIAMINE HCL 100 MG TABLET PO SCH (09:55)
[2016-11-04] MEDS: FOLIC ACID 1 MG TABLET PO SCH (09:55)
[2016-11-04] MEDS: LORAZEPAM 1 MG TABLET PO SCH ×3 (09:55→21:33)
[2016-11-04] MEDS: MULTIVITAMINS,THERAPEUTIC TABLET PO SCH (09:55)
[2016-11-04] MEDS: BACLOFEN 10 MG TABLET PO SCH (09:55)
[2016-11-04] MEDS ORDERED: KETOROLAC TROMETHAMINE 30 MG INJ IM PRN (11:30)
[2016-11-04] MEDS: SULFAMETH/TRIMETH 800/160 MG TABLET PO SCH ×2 (11:40→21:33)
--- NOTE | 2016-11-04 11:40 | NUR ---
NSG NOTES Pt was seen and examined by Dr. Sky with new order to start on Bactrim DS for right forearm abscess. Medication was given to pt and korey well. Encouraged increase fluid intake. Will continue to monitor.
[2016-11-04 12:00] VITALS: BP 100/57
[2016-11-04] MEDS ORDERED: LORAZEPAM 1 MG TABLET PO ONE (12:00)
[2016-11-04] MEDS ORDERED: BUPRENORPHINE HCL 2 MG TAB.SUBL SL ONE (12:00)
[2016-11-04] MEDS ORDERED: GABAPENTIN 300 MG CAPSULE PO SCH ×2 (15:00→21:00)
[2016-11-04] MEDS: BACLOFEN 20 MG TABLET PO SCH ×2 (15:11→21:33)
[2016-11-04] MEDS: BUPRENORPHINE HCL 2 MG TAB.SUBL SL SCH ×2 (15:12→21:34)
[2016-11-04] MEDS: DOCOSANOL 2 GM CREAM TP SCH ×3 (15:50→21:48)
--- NOTE | 2016-11-04 15:50 | NUR ---
NSG NOTES Pt is noted with cold sore on right side of lower lip. Relayed to Dr. Sky with new order for [place] QID for cold sore. New order was initiated by
[2016-11-04 16:00] VITALS: BP 109/68
--- NOTE | 2016-11-04 18:33 | NUR ---
END OF SHIFT Pt is a 26 yr old female, A&Ox3. Pt was admitted on 11/01/16 for ETOH/Opiate Dependence and is on 4 day Subutex and 4 day Ativan taper as ordered. Pt has been cooperative with medication regimen. Pt refused to attend group sessions. No PRNs were given. Pt started on Bactrim DS for RFA abscess. No adverse reaction noted. Pt has been c/o anxiety and cold chills. Skin is intact, warm and dry to touch. No tremors seen or felt. Pt denies any n/v. Last COWS score was 5, CIWA score was 4. Encouraged increase fluid intake. Safety precautions observed. Call light is within reach.
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
[2016-11-04 20:00] VITALS: BP 97/59
[2016-11-04] MEDS: LACTOBACILLUS RHAMNOSUS GG 1 EACH CAPSULE PO SCH (21:33)
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
--- NOTE | 2016-11-05 07:54 | NUR ---
START OF SHIFT NOTE Patient is alert and orientated X4, laying in bed this morning with respirations even and unlabored. Patient slept 6 hours last night per night nurse with last CIWA 2 COWS 3. No PRNS were given last night. Patient is on a 4 day subutex taper and 4 day ativan taper and tolerating both well. Patient has a history of seizure one year ago. All safety measures in place. will continue to monitor patient closely.
[2016-11-05 08:13] VITALS: BP 101/65
[2016-11-05] MEDS: LACTOBACILLUS RHAMNOSUS GG 1 EACH CAPSULE PO SCH ×2 (08:48→20:59)
[2016-11-05] MEDS: BUPRENORPHINE HCL 2 MG TAB.SUBL SL SCH ×3 (08:48→20:59)
[2016-11-05] MEDS: FOLIC ACID 1 MG TABLET PO SCH (08:49)
[2016-11-05] MEDS: BACLOFEN 20 MG TABLET PO SCH ×3 (08:49→20:58)
[2016-11-05] MEDS: LORAZEPAM 1 MG TABLET PO SCH ×2 (08:49→20:58)
[2016-11-05] MEDS: THIAMINE HCL 100 MG TABLET PO SCH (08:49)
[2016-11-05] MEDS: MULTIVITAMINS,THERAPEUTIC TABLET PO SCH (08:49)
[2016-11-05] MEDS: SULFAMETH/TRIMETH 800/160 MG TABLET PO SCH ×2 (08:49→20:58)
[2016-11-05] MEDS: GABAPENTIN 300 MG CAPSULE PO SCH ×3 (08:49→20:57)
[2016-11-05] MEDS: FLUOXETINE HCL 20 MG CAPSULE PO SCH (08:49)
[2016-11-05] MEDS: DICYCLOMINE HCL 20 MG TABLET PO SCH ×3 (08:49→20:57)
[2016-11-05] MEDS: DOCOSANOL 2 GM CREAM TP SCH ×4 (08:50→20:57)
--- NOTE | 2016-11-05 10:22 | NUR ---
Therapist prompted client to attend daily group therapy sessions. Client stated that she probably would not attend at this time.
[2016-11-05 13:03] VITALS: BP 97/55
[2016-11-05 17:55] VITALS: BP 105/49
--- NOTE | 2016-11-05 18:51 | NUR ---
END OF SHIFT NOTE Patient is a 26 year old female admitted on 11/01/16 for ETOH, Heroin, and Meth. she is alert and orientated X 4. Vital signs have remained within normal limits throughout the day. Last CIWA 3 COWS 4. Patient is on a 4 day Subutex taper and 4 day ativan taper and tolerating well. NO PRNs given today. Patient is a full code allergic to vancomycin and shellfish, on regular diet and full code. She has a history of seizures 2015. She is on antibiotic for an abscess on her right wrist, MR aware. Patient has been participating in group and activities and has been compliant with MDs orders. All safety measures in place and all needs have been met. Will continue to monitor patient until endorsed to night nurse.
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
[2016-11-05 20:00] VITALS: BP 113/66
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
[2016-11-06 08:00] VITALS: BP 93/61
--- NOTE | 2016-11-06 08:01 | NUR ---
START OF SHIFT NOTE Received patient this am aox4. patient presents with brighter affect and happier mood. No PRNs given per night nurse. Patient continues on 4 day Subutex taper/4 Day Ativan taper. Patient slept 5 hours. Vital signs stable. Encouraged pt to attend groups and activities. Will monitor closely and offer help.
[2016-11-06] MEDS: FOLIC ACID 1 MG TABLET PO SCH (08:58)
[2016-11-06] MEDS: THIAMINE HCL 100 MG TABLET PO SCH (08:58)
[2016-11-06] MEDS: MULTIVITAMINS,THERAPEUTIC TABLET PO SCH (08:58)
[2016-11-06] MEDS: LACTOBACILLUS RHAMNOSUS GG 1 EACH CAPSULE PO SCH ×2 (08:58→20:38)
[2016-11-06] MEDS: BACLOFEN 20 MG TABLET PO SCH ×3 (08:58→20:37)
[2016-11-06] MEDS: GABAPENTIN 300 MG CAPSULE PO SCH ×3 (08:59→20:37)
[2016-11-06] MEDS: FLUOXETINE HCL 20 MG CAPSULE PO SCH (08:59)
[2016-11-06] MEDS: SULFAMETH/TRIMETH 800/160 MG TABLET PO SCH ×2 (08:59→20:37)
[2016-11-06] MEDS: DOCOSANOL 2 GM CREAM TP SCH ×4 (08:59→20:38)
[2016-11-06] MEDS: DICYCLOMINE HCL 20 MG TABLET PO SCH ×3 (08:59→20:38)
[2016-11-06] MEDS ORDERED: BUPRENORPHINE HCL 2 MG TAB.SUBL SL SCH (09:00)
[2016-11-06] MEDS ORDERED: LORAZEPAM 1 MG TABLET PO SCH (09:00)
[2016-11-06 12:00] VITALS: BP 106/64
[2016-11-06] MEDS ORDERED: LIDOCAINE 1%-EPI 1:100,000 20 ML VIAL TP ONE (12:45)
[2016-11-06] MEDS ORDERED: LIDOCAINE 1%-EPI 1:200,000 MPF 30 ML VIAL MC ONE ×2 (13:00→14:15)
[2016-11-06] MEDS ORDERED: DICY20TA28 PO (15:19)
[2016-11-06] MEDS ORDERED: LACT1CAP57 PO (15:19)
[2016-11-06] MEDS ORDERED: FLUO-120 PO (15:19)
[2016-11-06] MEDS ORDERED: IBUP-1955 PO (15:19)
[2016-11-06] MEDS ORDERED: BACL20TA PO (15:19)
[2016-11-06] MEDS ORDERED: GABA-534 PO (15:19)
[2016-11-06] MEDS ORDERED: SULF1TAB3 PO (15:19)
[2016-11-06] MEDS ORDERED: TRAZ-144 PO (15:19)
[2016-11-06 16:00] VITALS: BP 112/66
--- NOTE | 2016-11-06 18:23 | NUR ---
END OF SHIFT NOTE Patient completed taper. No PRNs given during shift.Patient presented with brighter affect during shift and voiced readiness for discharge. Vital signs stable. Last COWS 2 CIWA 2.Pt attended groups and activities and socialized with peers. All needs met. All safety measures in place. Will endorse to night nurse.
[2016-11-06 18:50] LABS: *AMPHETAMINE, URINE NEGATIVE (NEGATIVE); *BARBITURATE, URINE NEGATIVE (NEGATIVE); *CANNABINOID, URINE NEGATIVE (NEGATIVE); *COCCAINE, URINE NEGATIVE (NEGATIVE); *OPIATE, URINE POSITIVE (NEGATIVE); *PHENCYCLIDINE SCREEN,URINE NEGATIVE (NEGATIVE)
[2016-11-06] MEDS: ONDANSETRON ODT 4 MG TAB.RAPDIS SL PRN (19:12)
--- NOTE | 2016-11-06 19:12 | NUR ---
PRN Zofran: Patient complains of nausea; pt denies emesis. Administered PRN Zofran 4mg SL as ordered. Will continue to monitor.
--- NOTE | 2016-11-06 19:40 | NUR ---
Start of Shift Note: Report received from day shift nurse. Pt is a 26 y/o female admitted on 11/01/2016 for medically-supervised withdrawal from opiates, ETOH, and methamphetamine. Pt reports using 0.5-1gm heroin, drinking 1500ml wine, and using 0.5gm IV methamphetamine salts daily for one month. Pt has completed 4-day Ativan and Subutex tapers and is to discharge tomorrow. Pt received with last COWS=2/CIWA=2, and no PRN medications were given during day shift. Pt is a full code. Pt reports allergy to shellfish and vancomycin. Pt is on a regular diet. Pt is scheduled for I&D of abscess to right forearm. PMHx: depression, OCD, hx of seizure, Hep-C, and hx of MRSA and chlamydia. Pt received in room, and reports anxiety, nausea, and right arm pain. Bed is in low position and locked, side rails up x2, call light within reach. Will continue to monitor.
[2016-11-06 20:00] VITALS: BP 116/73
--- NOTE | 2016-11-06 20:15 | NUR ---
PRN Reassessment: Patient reports mild relief of nausea with PRN Zofran administration.
[2016-11-06] MEDS: IBUPROFEN 600 MG TABLET PO PRN (20:37)
--- NOTE | 2016-11-06 20:37 | NUR ---
PRN Motrin and PRN Trazodone: Pt c/o pain r/t abscess in right forearm. Pt rates pain 7/10. Administered PRN Motrin as ordered. Pt c/o inability to sleep. Administered PRN Trazodone as ordered. Will continue to monitor.
[2016-11-06] MEDS ORDERED: SILVER NITRATE APPLICATOR STICK EACH TP ONE (20:45)
--- NOTE | 2016-11-06 20:55 | NUR ---
I&D: BEN Ch performed I&D to abscess of pt's right forearm. Pt tolerated procedure well. Verbal order received to change dressing at 05:00 and pack with iodoform gauze. PRN Silver nitrate available if bleeding not controlled with pressure.
--- NOTE | 2016-11-06 21:40 | NUR ---
PRN Reassessment: Pt reports that pain is now 2/10. PRN Motrin effective.
--- NOTE | 2016-11-07 | NUR ---
V/S Refused, COWS/CIWA Deferred: Patient refuses V/S. COWS and CIWA are deferred for sleep. All safety precautions are in place. Will continue to monitor. Addendum: 11/07/16 at 0232 by ALBINO LEON RN Amended: Links added.
--- NOTE | 2016-11-07 04:00 | NUR ---
V/S Refused, COWS/CIWA Deferred: Patient refuses 04:00 V/S. COWS/CIWA is deferred for sleep. All safety precautions are in place. Will continue to monitor Addendum: 11/07/16 at 0418 by ALBINO LEON RN Amended: Links added.
--- NOTE | 2016-11-07 06:10 | NUR ---
Dressing Change: Dressing to right forearm from s/p I&D removed, packing removed. Repacked wound with iodoform gauze using sterile applicator and then covered with sterile gauze and secured as ordered.
[2016-11-07 06:15] VITALS: BP 109/52
--- NOTE | 2016-11-07 06:32 | NUR ---
Discharge Note: Pt is a 26 y/o female admitted to [facility] on 11/01/2016 for medically-supervised withdrawal from opiates, ETOH, and methamphetamine salts. Pt completed 4-day Ativan and Subutex tapers and is to discharge. Pt is A&OX4, stable, and ambulatory with steady gait. Pt verbalizes readiness for discharge. V/S: BP 109/52, SpO2 96% on RA, RR 14, T 97.8, HR 62. Latest COWS=3/CIWA=3. Pt signed discharge instructions with agreement and verbalized understanding. All belongings returned to patient, along with discharge instructions and discharge prescriptions, and pt ambulated off the unit at 06:32 without incident.
== END 2016-11-07 06:32 | disposition other institution (70) | DRG 895 ==
LOC: SRC 23:40
PROVIDERS: ADMIT Internal Medicine; ATTEND Internal Medicine
DX: F11.23 Opioid dependence with withdrawal (principal); E46 Unspecified protein-calorie malnutrition; F15.20 Other stimulant dependence, uncomplicated; E83.42 Hypomagnesemia; L02.413 Cutaneous abscess of right upper limb; Z68.1 Body mass index [BMI] 19.9 or less, adult; F10.230 Alcohol dependence with withdrawal, uncomplicated; Y90.9 Presence of alcohol in blood, level not specified; F13.230 Sedative, hypnotic or anxiolytic dependence with withdrawal, uncomplicated; Z82.49 Family history of ischemic heart disease and other diseases of the circulatory system; Z81.8 Family history of other mental and behavioral disorders; Z81.1 Family history of alcohol abuse and dependence; Z81.3 Family history of other psychoactive substance abuse and dependence; Z59.8 Other problems related to housing and economic circumstances; G47.00 Insomnia, unspecified; Z79.899 Other long term (current) drug therapy; E87.6 Hypokalemia; B19.20 Unspecified viral hepatitis C without hepatic coma; F17.210 Nicotine dependence, cigarettes, uncomplicated; S51.831S Puncture wound without foreign body of right forearm, sequela; L08.9 Local infection of the skin and subcutaneous tissue, unspecified; X78.8XXS Intentional self-harm by other sharp object, sequela; B00.1 Herpesviral vesicular dermatitis; F32.9 Major depressive disorder, single episode, unspecified; F41.9 Anxiety disorder, unspecified
CPT/HCPCS: 36415; 70030-TC; 80307; 80324; 80345; 80346; 80361; 83735; 84703; 85025; 86580; 86592; 86705; 86803; 87340; 87806; A4663; G0480; J3411; J3490; Q0162